=== PATIENT | male | born 1990 | race Caucasian/White ===

== ENCOUNTER → 2017-09-27 15:18 | Outpatient (CLI) | payer BC, SELFPAY ==
[2017-09-27 17:34] LABS: Absolute Lymphocyte Count 1.88 X10^3/ul (0.83-4.51); Absolute Neutrophil Count 4.4 X10^3/uL (2.0-7.7); Basophil# 0.02 X10^3/uL; Basophil% 0.3 % (0-1); Eosinophil# 0.15 X10^3/uL; Eosinophils% 2.1 % (0-5); Hematocrit 44.4 % (40-54); Hemoglobin 15.5 g/dl (13.0-16.5); Lymphocyte # 1.88 X10^3/ul (4.0); Lymphocyte % 26.9 % (19-41); Mean Corp Hgb Conc 34.9 g/gl (32-36); Mean Corpuscular Hgb 30.6 pg (27.0-32.0); Mean Corpuscular Volume 87.6 fL (80-94); Mean Platelet Vol. 11.5 fl (6.2-12.0); Monocyte# 0.55 X10^3/uL; Monocyte% 7.9 % (0-10); Neutrophil % 62.8 % (47-70); Platelet Count 245 K/mm3 (150-450); RBC Distribution Width CV 13.2 % (11.6-14.6); Red Blood Count 5.07 M/mm3 (4.6-6.2)
[2017-09-27 17:49] LABS: POSITIVE COUNT NO; POSITIVE DIFFERENTIAL NO; POSITIVE MORPHOLOGY NO
[2017-09-27 17:53] LABS: ALB/GLOB Ratio 1.1 RATIO (0.9-2.4); AST(SGOT) 22 U/L (15-37); Alanine Aminotransfer ALT/SGPT 44 U/L (16-61); Alkaline Phosphatase 72 U/L (45-117); Anion Gap 8 (5-15); BUN 14 mg/dL (7-18); BUN/Creat Ratio 17.1 RATIO (10-20); Calcium,Total 8.5 mg/dL (8.5-10.1); Chloride 102 mmol/L (98-107); Creatinine, Serum 0.82 mg/dL (0.70-1.30); EST Glomerular Filtration Rate 121 mL/min (>60); Est Glom Filt Rate - Afr Amer 146 mL/min (>60); Globulin 3.5 g/dL (2.2-4.2); Glucose 77 mg/dL (74-106); Potassium 3.5 mmol/L (3.5-5.1); Protein, Total 7.5 g/dL (6.4-8.2); Sodium Level 139 mmol/L (136-145); Thyroid Stim Hormone (TSH) 1.23 uIU/mL (0.358-3.74)
== END ==
PROVIDERS: Family Provider Family Medicine; PCP Family Medicine; Visit Provider Family Medicine
DX: R06.00 Dyspnea, unspecified (principal)
CPT/HCPCS: 36415; 80053; 84443; 85025

== ENCOUNTER 2020-04-29 20:26 | Emergency (ER) | payer BC, SELFPAY ==
[2020-04-29 20:27] VITALS: BP 141/74; PULSE 89; RESP 17; TEMP 36.8; O2SAT 99; BMI 30.7
--- NOTE | 2020-04-29 20:35 | RAD_ITS ---
STUDY: X-RAY - LEFT HAND REASON FOR EXAM: Male, 30 years old. 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 COMPARISON: None. FINDINGS: Normal radiocarpal articulation. Normal distal radioulnar joint. Normal visualized carpal bones. Normal carpal articulations Normal carpometacarpal articulation of the thumb. Normal second through fifth carpometacarpal joints. Normal metacarpi. Normal metacarpophalangeal joint of the thumb. Normal interphalangeal joint of the thumb. Normal proximal and distal phalanges of the thumb. Normal metacarpophalangeal joints of the second through fifth fingers. Normal proximal and distal interphalangeal joints of the second through fifth fingers. Normal phalanges of the second through fifth fingers. The soft tissue structures are unremarkable. RAD/Hand Min 3 Views IMPRESSION: No acute osseous injury is evident. No radiodense foreign body is seen. Electronically Signed: Cooper Mccann MD at 20:57 EDT Tel , Service support ,
[2020-04-29] MEDS: Diphth,Pertuss(Acell),Tet Vac 0.5 ML Vial IM (20:47)
--- NOTE | 2020-04-29 20:47 | ED.DCSUM_ITS ---
History of Present Illness Chief Complaint: Laceration Informant: Patient Onset: Today Context: Sudden Onset Timing: Continuous Current Severity: Moderate Maximum Severity: Moderate Narrative: The patient is a 30-year-old male who is right-hand dominant that presents to the emergency department with left thumb injury. 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 He states the wheel came off and incised the dorsum of his left thumb. He had immediate pain and bleeding. He is unsure of his last tetanus. He does state that the thumb feels mildly weak. He dressed it and presented here immediately. He is on no daily medications. Prior similar symptoms: No Recent Illness/Hospitalization: No Past Medical History - Allergies and Home Meds Allergies/Adverse Reactions: Allergies No Known Allergies Allergy (Verified 04/29/20 20:27) Primary Care Physician: Shayy Cazares MD [Primary Care Provider] - Prior records reviewed: Yes Past Medical History: None Surgical History: no surgical history Smoking Status: Former smoker Review of Systems General: Denies: Chills, Fever, Sweats Eyes: Denies: Visual changes - bilaterally, Diplopia ENT: Denies: Rhinorrhea, Sore throat Cardiovascular: Denies: Chest pain, Palpitations Respiratory: Denies: Dyspnea, Cough, Dyspnea on exertion Gastrointestinal: Denies: Abdominal pain, Nausea, Vomiting, Diarrhea, Melena, Hematochezia Genitourinary: Denies: Dysuria, Hematuria, Frequency Musculoskeletal: Denies: Back pain, Extremity Pain Skin: Denies: Rash, Wounds Neurological: Denies: Headache, Weakness, Numbness Physical Exam Vital Signs/Narrative: Vital Signs Temp Pulse Resp BP Pulse Ox 04/29/20 20:27 98.2 F 89 17 141/74 H 99 Inital Vital Signs reviewed: Yes General: Well nourished, Well developed, No Acute Distress Head: Normocephalic, Atraumatic Eyes: Perrl, EOMI ENT: Moist mucous membranes, No rhinorrhea Neck: Supple, Nontender Cardiovascular: Regular rate, Regular rhythm, No murmurs Respiratory: No distress, CTA bilaterally, Chest nontender Abdomen: Soft, Nontender, Nondistended, Normal bowel sounds Back: Nontender, Normal Inspection Extremities: No edema, Tenderness - Patient has a 2 cm full-thickness laceration over the IP joint of the left thumb on the dorsum. The distal end of the extensor tendon is visible. He does have some weakness. Two-point discrimination is preserved. Cap refill is less than 2 seconds. Skin: Normal color, No rash Neurological: Alert, Oriented x3, Cranial nerves II-XII grossly intact, Normal Strength, Normal Sensation Psychological: Normal affect, Normal Mood Diagnostic/Tx/Re-eval - Medical Decision Making Patient presents with laceration to the thumb. He does have extensor tendon injury. His tetanus is updated. Patient underwent x-ray. X-ray shows no evidence of bony disruption or retained foreign body. I did discuss the patient with Dr. Kuo, hand surgeon at [place]. He agreed with plan for loose closure and antibiotics. The patient's wound was anesthetized with lidocaine 1% without epinephrine. It was irrigated copiously. It was closed with 2 simple 4-0 interrupted suture. The patient was placed in an extension splint. He will be kept on Augmentin. He was given contact information for hand surgery and I did explain to him that this is likely going to need operative repair. He is comfortable with this plan of care. Impression 1. 2 cm left thumb laceration with extensor tendon injury 2. Laceration repair ED Disposition - Plan for ED Patient: Instructions: ED TENDON LACERATION Prescriptions: Amox/Clavulanate Tablet [Augmentin Tablet] 875 mg PO Q12H #20 tab Prescription Printed Referrals: Shayy Cazares MD [Primary Care Provider] - Additional Instructions: I spoke with Dr. Kaiser Kuo, hand surgeon, for follow-up. His office number is [phone]. His office contact distance education faculty liaison is Danielle.
[2020-04-29] MEDS: Amox/Clavulanate 875 MG Tablet PO (21:19)
[2020-04-29 21:26] VITALS: BP 138/60; PULSE 78; RESP 16; O2SAT 97
== END 2020-04-29 21:26 | disposition home or self-care (01) ==
LOC: ED 21:07
PROVIDERS: Emergency Provider Emergency Medicine; PCP Family Medicine
DX: S66.222A Laceration of extensor muscle, fascia and tendon of left thumb at wrist and hand level, initial encounter (principal); S61.012A Laceration without foreign body of left thumb without damage to nail, initial encounter; W45.8XXA Other foreign body or object entering through skin, initial encounter; Y93.9 Activity, unspecified; Y92.89 Other specified places as the place of occurrence of the external cause; Y99.9 Unspecified external cause status; Z23 Encounter for immunization; Z87.891 Personal history of nicotine dependence
CPT/HCPCS: 12001; 73130; 90471; 90715; 99283